=== PATIENT | male | born 1955 | race Caucasian/White ===

== ENCOUNTER 2018-03-22 16:28 | Emergency (ER) | payer BC ==
[~2018-03-22] VITALS: Ht 182.9 cm; Wt 99.7 kg
[2018-03-22 17:47] LABS: HEMATOCRIT 40.5 % (38.0-50.0); HEMOGLOBIN 14.5 G/DL (12.5-16.6); MCH 33.6 PG (29.0-34.0); MCHC 35.8 G/DL (30.0-36.0); MCV 93.8 FL (86-99); PLATELET COUNT 246 K/uL (156-360); RBC DIS.WIDTH-CV 11.8 % (11.8-14.6); RBC DIS.WIDTH-SD 40.6 % (39-53); RED BLOOD COUNT 4.32 M/uL (4.00-5.50); WHITE BLOOD COUNT 7.3 K/uL (4.1-10.2)
[2018-03-22 17:54] LABS: APPEARANCE CLEAR ((CLEAR)); BILIRUBIN NEGATIVE; BLOOD SMALL; COLOR YELLOW ((YELLOW)); GLUCOSE (STRIP) NEGATIVE; KETONES NEGATIVE; LEUKOCYTES NEGATIVE; NITRITE NEGATIVE; PROTEIN (STRIP) NEGATIVE; SPECIFIC GRAVITY 1.015 (1.000-1.030); UROBILINOGEN 0.2 MG/DL (0.2-1.0)
[2018-03-22 17:58] LABS: BACTERIA NONE SEEN /HPF; EPITHELIAL CELLS NONE SEEN /HPF; MUCUS TRACE /LPF; RED BLOOD CELLS 0-5 /HPF (0-5); UCUL ADDED? NO; WHITE BLOOD CELLS 0-5 /HPF (0-5)
[2018-03-22 18:00] LABS: ALBUMIN 4.8 g/dL (3.2-4.8)
[2018-03-22 18:01] LABS: CHLORIDE 107 mEq/L (99-109); POTASSIUM 4.3 mEq/L (3.7-5.4); SODIUM 141 mEq/L (136-147)
[2018-03-22 18:03] LABS: GLUCOSE 117 mg/dL (70-99); TOTAL PROTEIN 7.5 g/dL (6.4-8.3)
[2018-03-22 18:05] LABS: TOTAL BILIRUBIN 0.8 mg/dL (0.0-1.0)
[2018-03-22 18:06] LABS: ALKALINE PHOSPHATASE 58 IU/L (3-129)
[2018-03-22 18:07] LABS: CREATININE 0.9 mg/dL (0.6-1.3); GFR ESTIMATE (CALCULATED) > 59 mL/min/ (58.99-99999)
[2018-03-22 18:08] LABS: AST (GOT) 20 IU/L (2-34); UREA NITROGEN (BUN) 12 mg/dL (9-23)
[2018-03-22 18:10] LABS: ALT (GPT) 32 IU/L (3-49); TROP-I INTERPRETATION NEGATIVE; TROPONIN-I < 0.01 ng/mL (0.0-0.30)
[2018-03-22 18:26] VITALS: BP 142/77
== END 2018-03-22 18:36 | disposition home or self-care (01) ==
LOC: EME 16:28
PROVIDERS: Physician Assistant
DX: R53.83 Other fatigue (principal); R03.0 Elevated blood-pressure reading, without diagnosis of hypertension; I44.0 Atrioventricular block, first degree; Z88.8 Allergy status to other drugs, medicaments and biological substances
CPT/HCPCS: 71045; 80053; 81003; 84484; 85027; 93005; 99281; 99284

== ENCOUNTER 2018-03-26 01:11 | Emergency (ER) | payer BC ==
[~2018-03-26] VITALS: Ht 182.9 cm; Wt 100.7 kg
[2018-03-26] MEDS ORDERED: NORVASC2.5 MG PO (04:17)
[2018-03-26 06:20] VITALS: BP 154/87
== END 2018-03-26 06:31 | disposition home or self-care (01) ==
LOC: EME 01:11
DX: I10 Essential (primary) hypertension (principal)
CPT/HCPCS: 99281; 99284

== ENCOUNTER 2018-04-15 15:22 | Emergency (ER) | payer BC ==
[~2018-04-15] VITALS: Ht 180.3 cm; Wt 99.2 kg
[~2018-04-15 15:22] MED LIST: NORVASC2.5 MG PO
[2018-04-15] MEDS ORDERED: ATIVAN1 MG PO (16:20)
[2018-04-15 16:25] LABS: AMPHETAMINE NEGATIVE (500 ng/mL); BARBITURATES NEGATIVE (200 ng/mL); BENZODIAZEPINES NEGATIVE (150 ng/mL); BUPRENORPHINE NEGATIVE (10 ng/mL); COCAINE NEGATIVE (150 ng/mL); METHADONE NEGATIVE (200 ng/mL); METHAMPHETAMINE NEGATIVE (500 ng/mL); OPIATES (MORPHINE) NEGATIVE (100 ng/mL); OXYCODONE NEGATIVE (100 ng/mL); PHENCYCLIDINE NEGATIVE (25 ng/mL); PROPOXYPHENE NEGATIVE (300 ng/mL); THC CANNABINOIDS NEGATIVE (50 ng/mL); TRICYCLIC ANTIDEPRESSANTS NEGATIVE (300 ng/mL)
[2018-04-15 17:00] VITALS: BP 165/87
== END 2018-04-15 17:01 | disposition home or self-care (01) ==
LOC: EME 15:22
PROVIDERS: Emergency Medicine
DX: F41.1 Generalized anxiety disorder (principal); F33.2 Major depressive disorder, recurrent severe without psychotic features; I10 Essential (primary) hypertension
CPT/HCPCS: 90839; 99281; 99284